=== PATIENT | male | born 1955 | race Caucasian/White ===

== ENCOUNTER 2019-07-07 07:01 | Observation (INO) ==
--- NOTE | 2019-06-10 11:16 | Anesthesiology Consultation ---
Date of Service June 10, 2019 Assessment & Plan (1) Encounter for pre-operative examination: Chart Review Chart Review: Pending: Refer to Additional Notes / Consult section (pending preop testing (labs, EKG, CXR)) and Patient seen in Pre Admission Testing Teaching & Discussion Pre-Anesthesia Teaching/Discussion Notes: Instructed NPO after midnight before surgery,except medications with 15 cc of water. Medication instructions provide d according to the PAT guidelines. History Surgery Operation Date: 06/23/19 09:50 Proposed Procedures p Bilateral Open Inguinal Hernia Repair - John Jimenez MD, FACS Height/Weight Height: 5 ft 10 in Weight: 88.2 kg Allergies Allergy/AdvReac Type Severity Reaction Status Date / Time Penicillins Allergy Unknown Childhood- Verified 06/10/19 11:11 unknown reaction Medications Home Medications Medication Instructions Recorded Confirmed Last Taken calcipotriene 0.005 % topical cream 1 appln TOPICAL DAILY gm 06/09/19 06/10/19 Unknown fluticasone propionate 50 1 sprays INTRANASAL Q12H PRN #1 gm 06/09/19 06/10/19 Unknown mcg/actuation nasal spray,suspension latanoprost 0.005 % eye drops 1 drops OPB HS 06/09/19 06/10/19 Unknown multivitamin tablet 1 tab PO DAILY 06/09/19 06/10/19 Unknown zinc 50 mg tablet 50 mg PO HS tab 06/09/19 06/10/19 Unknown aspirin 81 mg tablet,delayed 81 mg PO QAM tab 06/10/19 06/10/19 Unknown release atorvastatin 10 mg tablet 10 mg PO HS tab 06/10/19 06/10/19 Unknown cholecalciferol (vitamin D3) 2,000 2,000 units PO QPM cap 06/10/19 06/10/19 Unknown unit capsule diclofenac sodium 50 mg 50 mg PO BID tab 06/10/19 06/10/19 Unknown tablet,delayed release gabapentin 300 mg capsule 300 mg PO HS cap 06/10/19 06/10/19 Unknown lisinopril 20 mg tablet 20 mg PO QAM tab 06/10/19 06/10/19 Unknown omega-3 acid ethyl esters 1 gram 1 cap PO DAILY cap 06/10/19 06/10/19 Unknown capsule timolol maleate 0.5 % once daily 1 drops OPB BID 06/10/19 06/10/19 Unknown eye drops tramadol 50 mg tablet 50 mg PO Q6H PRN tab 06/10/19 06/10/19 Unknown Past Medical History Medical History Bulging disc cervical "pinched nerve"- on gabapentin Glaucoma Hyperlipidemia Hypertension Migraine Osteoarthritis Sleep apnea CPAP Exercise / Class Metabolic Activity II 4-5 Yardwork/Stairs/Walk up hill Past Family History Family History Other No significant family history Past Surgical History Surgical History History of colonoscopy History of tooth extraction Hx of vasectomy S/P epidural steroid injection LUMBAR SPINE (HAD ANESTHESIA) Past Anesthesia History No Hx of Anesthesia Complications and No Family Hx of Anesthesia Complications History of PONV No Hx of PONV and No Hx of Motion Sickness Social History Smoking Status: Former smoker tobacco type: cigarettes Do You Dip or Chew Tobacco: No Smoking End Date: QUIT 35 YEARS AGO Hx Alcohol Use: No Hx Substance Use: No substance use type: does not use Review of Systems Patient denies chest pain, shortness of breath, dyspnea on exertion, reflux, cough, wheezing, palpitations. Physical Exam Vital Signs Last Vital Signs Temp 36.9 C 06/10/19 10:53 Pulse 50 L 06/10/19 10:53 Resp 16 06/10/19 10:53 BP 139/86 06/10/19 10:53 Pulse Ox 96 06/10/19 10:53 HR in high 40's-low 50's during PAT exam (per patient, chronic bradycardia/asymp tomatic) PHYSICAL Full neck and c-spine range of motion. Full TMJ range of motion. TMD 3.5 finger breaths Mallampati Score 1 Dentition: missing sides/molars, several crowns "all over" Lungs: clear throughout to auscultation Cardiac: regular rate and rhythm, no murmurs noted Spine: normal Carotid arteries: negative bruit Extremities: no edema
--- NOTE | 2019-06-10 11:17 | PAT Medication Instructions ---
Medication Instructions Date of Service June 10, 2019 Home Medications calcipotriene 0.005 % topical cream 1 appln TOPICAL DAILY fluticasone propionate 50 mcg/actuation nasal spray,suspension 1 sprays INTRANASAL Q12H PRN latanoprost 0.005 % eye drops 1 drops OPB multivitamin tablet 1 tab PO DAILY zinc 50 mg tablet 50 mg PO HS aspirin 81 mg tablet,delayed release 81 mg PO QAM atorvastatin 10 mg tablet 10 mg PO HS cholecalciferol (vitamin D3) 2,000 unit capsule 2,000 units PO QPM diclofenac sodium 50 mg tablet,delayed release 50 mg PO BID gabapentin 300 mg capsule 300 mg PO HS lisinopril 20 mg tablet 20 mg PO QAM omega-3 acid ethyl esters 1 gram capsule 1 cap PO DAILY timolol maleate 0.5 % once daily eye drops 1 drops OPB BID tramadol 50 mg tablet 50 mg PO Q6H PRN ASK your surgeon for instructions diclofenac sodium 50 mg tablet,delayed release 50 mg PO BID ASK your prescriber and surgeon aspirin 81 mg tablet,delayed release 81 mg PO QAM STOP taking 2 weeks before surgery (or as soon as possible if surgery is within 2 weeks) omega-3 acid ethyl esters 1 gram capsule 1 cap PO DAILY STOP taking 24 hours before surgery calcipotriene 0.005 % topical cream 1 appln TOPICAL DAILY DO NOT take the morning of surgery multivitamin tablet 1 tab PO DAILY lisinopril 20 mg tablet 20 mg PO QAM Take morning of surgery With a small sip of water, OTHERWISE NOTHING TO EAT OR DRINK AFTER MIDNIGHT: fluticasone propionate 50 mcg/actuation nasal spray,suspension 1 sprays INTRANASAL Q12H PRN (if needed) timolol maleate 0.5 % once daily eye drops 1 drops OPB BID tramadol 50 mg tablet 50 mg PO Q6H PRN (okay to take up to 4 hours prior to surgery if needed) Take evening before surgery fluticasone propionate 50 mcg/actuation nasal spray,suspension 1 sprays INTRANASAL Q12H PRN latanoprost 0.005 % eye drops 1 drops OPB zinc 50 mg tablet 50 mg PO HS atorvastatin 10 mg tablet 10 mg PO HS cholecalciferol (vitamin D3) 2,000 unit capsule 2,000 units PO QPM gabapentin 300 mg capsule 300 mg PO HS timolol maleate 0.5 % once daily eye drops 1 drops OPB BID tramadol 50 mg tablet 50 mg PO Q6H PRN (if needed) Other Notes If you have any questions please call us at [phone] or [phone] or [phone] or [phone]
[2019-06-10 12:54] LABS: Basophils # (auto) 0.02 K/uL (0-0.2); Basophils % (auto) 0.3 %; Eosinophils # (auto) 0.18 K/uL (0-0.5); Eosinophils % (auto) 2.5 %; Hematocrit (blood only) 45.5 % (42-52); Hemoglobin 16.1 g/dL (14.0-18.0); Immature Granulocytes # (auto) 0.02 K/uL (0.00-0.02); Immature Granulocytes % (auto) 0.3 %; Lymphocytes # (auto) 1.11 K/uL (1.2-3.4); Lymphocytes % (auto) 15.4 %; Mean Corpuscular Hgb Conc 35.4 g/dL (32-36); Mean Corpuscular Volume 90.5 fL (80-100); Mean Platelet Volume 10.7 fL (7.4-10.4); Monocytes # (auto) 0.92 K/uL (0.11-0.59); Monocytes % (auto) 12.7 %; Neutrophils # (auto) 4.97 K/uL (1.4-6.5); Neutrophils % (auto) 68.8 %; Platelet Count 177 K/uL (130-400); RDW Coefficient of Variation 13.1 % (11.5-14.5); RDW Standard Deviation 42.6 fL (36.4-46.3); Red Blood Count 5.03 M/uL (4.7-6.1); White Blood Count 7.22 K/uL (4.8-10.8)
[2019-06-10 13:04] LABS: BUN Creatinine Ratio 18.1 (10-20); Calcium 10.1 mg/dl (8.5-10.1); Creatinine Clr Calc Pharmacy 89.5 ml/min; Est GFR (African American) 100.8; Potassium 4.9 mmol/L (3.5-5.1)
[~2019-07-07 07:01] MED LIST: CLINDAMYCIN 900 MG / 50ML D5W IV SCH; LR 15ML/HR IV SCH
[2019-07-07] MEDS ORDERED: ePHEDrine sulfate 50 MG/ML AMP IV PRN (07:34)
[2019-07-07] MEDS ORDERED: MEPERIDINE HCL 25 MG/ML CARP IV PRN (07:34)
[2019-07-07] MEDS ORDERED: HYDROmorphone INJ 1 MG/ML SYRINGE IV PRN (07:34)
[2019-07-07] MEDS ORDERED: LABETALOL HCL IV 5 MG/ML 20ML IV PRN (07:34)
[2019-07-07] MEDS ORDERED: fentaNYL citrate 100 MCG/2 ML VIAL IV PRN (07:34)
[2019-07-07] MEDS ORDERED: PHENYLEPHRINE 100MCG/ML 5ML SYR IV PRN (07:34)
[2019-07-07] MEDS ORDERED: ATROPINE SULFATE 0.1 MG/ML 10ML SYR IV PRN (07:34)
[2019-07-07] MEDS ORDERED: ONDANSETRON INJ 2 MG/ML 2 ML VIAL IV PRN ×2 (07:34→11:56)
[2019-07-07] MEDS ORDERED: PROPOFOL IV EMULSION 10 MG/ML 20 ML VIAL IV ONE (08:14)
[2019-07-07] MEDS ORDERED: GLYCOPYRROLATE 0.2 MG/ML VIAL ONE (08:14)
[2019-07-07] MEDS ORDERED: ONDANSETRON INJ 2 MG/ML 2 ML VIAL ONE (08:14)
[2019-07-07] MEDS ORDERED: MIDAZOLAM HCL 1 MG/ML 2ML VIAL ONE (08:14)
[2019-07-07] MEDS ORDERED: DEXAMETHASONE SOD INJ 4 MG/ML VIAL ONE (08:14)
[2019-07-07] MEDS ORDERED: LIDOCAINE HCL 2% 2 ML VIAL/AMP(20MG/ML) INFIL ONE (08:14)
[2019-07-07] MEDS ORDERED: ROCURONIUM BROMIDE 10 MG/ML 5 ML VIAL ONE ×2 (08:14→09:45)
[2019-07-07] MEDS ORDERED: NEOSTIGMINE METHYLSULFATE 5 MG/5 ML SYR ONE (08:14)
[2019-07-07] MEDS ORDERED: fentaNYL citrate 100 MCG/2 ML VIAL ONE (08:15)
[2019-07-07] MEDS ORDERED: BUPIVACAINE/EPINEPHRINE 0.5% MPF 1:200,000 30 ML VIAL ONE (08:20)
[2019-07-07] MEDS ORDERED: BACITRACIN INJ 50,000 UNIT VIAL ONE (08:20)
[2019-07-07] MEDS ORDERED: CEFAZOLIN 250 MG/ML 1 GM VIAL ONE (08:22)
--- NOTE | 2019-07-07 08:31 | History & Physical Bridge Note ---
Date of Service July 07, 2019 History & Physical Bridge Note I have examined the patient, reviewed the History & Physical and in the interval since the performance of the History & Physical I have noted the following changes of clinical significance: no changes noted
[2019-07-07] MEDS ORDERED: ePHEDrine sulfate 50 MG/ML SYR ONE (09:05)
[2019-07-07] MEDS ORDERED: ACETAMINOPHEN 1000 MG/100 ML IV IV ONE (09:40)
[2019-07-07] MEDS ORDERED: LARYING-O-JET KIT (LTA) ONE (09:45)
--- NOTE | 2019-07-07 10:14 | Operative Report ---
PG Post Operative Report Pre & Post Diagnosis Operation Date: 07/07/19 08:30 Pre-Op Diagnosis: Bilateral Inguinal Hernias Post-Op Diagnosis: Bilateral Inguinal Hernias- direct defects I identified the patient and participated in the time-out.: Yes Procedure Operation Date: 07/07/19 08:30 Actual Procedures p Bilateral Open Inguinal Hernia Repair(Bilateral) - John Jimenez MD, FACS Surgeon John Jimenez MD, FACS Football Coach Nunu Ojeda Estimated Blood Loss 10 Findings Consistent with Post-Op Diagnosis Specimens Lt lipoma Description of Procedure see dictation I attest to the content of the Intraoperative Record and any orders documented therein. Any exceptions are noted below.
--- NOTE | 2019-07-07 10:51 | Operative Report ---
DATE OF OPERATION: 07/07/2019 NAME OF OPERATION: Bilateral inguinal hernia repair. PREOPERATIVE DIAGNOSIS: Bilateral inguinal hernias. POSTOPERATIVE DIAGNOSIS: Bilateral inguinal hernias with direct defects. STAFF SURGEON: John Jimenez MD. CARGO SUPERVISOR: Gus Ojeda PA-C ANESTHESIA: General. DESCRIPTION OF PROCEDURE: The patient was brought in the operating room and placed on the operating table in supine position. His lower abdomen was prepped and draped in usual fashion bilaterally. My household personal assistant helped with prepping, draping, repair of the hernias and closure of the wounds. Right side was approached first. The patient had identical hernias on both sides, right greater than left. Incision was made in the right side parallel to the inguinal ligament, carrying dissection down identifying the external oblique fibers, incising them along their length to the external ring, mobilizing the cord structures. The patient had a direct hernia which was relatively large. It was mobilized away from the cord structures then reduced. A large mesh plug was placed into this area and then secured using 0 silk suture. A large mesh patch was then placed into the floor of the canal around the cord structures over the plug, secured using 2-0 Ethibond suture. External oblique fibers closed over the mesh around the cord structures using 2-0 Ethibond suture, we were careful to identify the ilioinguinal and iliohypogastric nerves. The site was anesthetized using 0.5% plain Marcaine. Subcutaneous tissue reapproximated using 2-0 plain suture and then the skin reapproximated using 4-0 nylon suture and Steri-Strips. Left side was approached in exactly the same repair with a little bit smaller direct defect and also a lipoma of the cord. It was again closed in an identical fashion. Dressings were applied and patient transferred to recovery room in stable condition. I attest to the content of the Intraoperative Record and any orders documented therein. Any exception s are noted below.
--- NOTE | 2019-07-07 11:03 | Anesthesiology Progress Note ---
Date of Service July 07, 2019 Anesthesia Post Procedure Vital Signs Vital Signs: Temp Pulse Pulse Resp BP BP Pulse Ox 07/07/19 10:50 65 17 143/65 H 99 07/07/19 10:40 76 18 137/71 99 07/07/19 10:32 36.3 C L 86 20 146/67 H 98 07/07/19 08:15 37.1 C 71 18 166/86 H 98 Pain Intensity Bilateral Groin: Pain Intensity: 1 Transfer of Care Handoff Completed per policy Notes Mental Status: alert / awake / arousable Patient Amnestic to Procedure: Yes Nausea / Vomiting: adequately controlled Pain: adequately controlled Airway Patency, RR, SpO2: stable & adequate BP & HR: stable & adequate Hydration State: stable & adequate Anesthetic Complications: no major complications apparent and Pt Satisfied with anesthetic care
[2019-07-07] MEDS ORDERED: MoRPHine SULFATE 2 MG/ML CARP IV PRN (11:56)
[2019-07-07] MEDS ORDERED: PROMETHAZINE HCL 12.5 MG in SODIUM CHLORIDE 0.9% 50 ML IV PRN (11:56)
[2019-07-07] MEDS ORDERED: ACETAMINOPHEN 325 MG TAB PO PRN (11:56)
[2019-07-07] MEDS ORDERED: PROMETHAZINE HCL 25 MG in SODIUM CHLORIDE 0.9% 50 ML IV PRN (11:56)
[2019-07-07] MEDS ORDERED: MoRPHine SULFATE 4 MG/ML 1 ML CARP\\VIAL IV PRN (11:56)
[2019-07-07] MEDS: HYDROCODONE/ACETAMOPHEN 5/325MG TAB PO PRN ×2 (12:59→23:11)
[2019-07-07] MEDS ORDERED: SODIUM CHLORIDE 0.9% 1000ML 1,000 ML IV SCH (13:00)
[2019-07-07] MEDS ORDERED: INFLUENZA ADMINISTRATION CHARGE ONE (13:45)
[2019-07-07] MEDS ORDERED: PNEUMOCOCCAL POLYSACCHARIDES 25 MCG/0.5 ML VIAL/SYR IM ONE (13:45)
[2019-07-07] MEDS ORDERED: PNEUMOCOCCAL ADMINISTRATION CHARGE ONE (13:45)
[2019-07-07] MEDS ORDERED: INFLUENZA VACCINE HIGH DOSE 65+ 0.5 ML SYR IM ONE (13:45)
--- NOTE | 2019-07-07 13:51 | Consultation ---
Date of Consultation July 07, 2019 Assessment & Plan (1) Bilateral inguinal hernia: s/p open repair with mesh tolerated well, minimal pain eating well, no issues breathing likely for d/c tomorrow AM if okay with Dr. Jimenez (2) HTN (hypertension): BP stable, continue Lisinopril check BMP in the AM (3) Dyslipidemia: continue Lipitor History of Present Illness Requesting Physician: Dr. Jimenez Reason for Consultation: Medical management Attending Physician: John Jimenez MD, [facility] History of Present Illness 63 yo male with h/o HTN, hyperlipidemia, sleep apnea who was is here on observation after bilateral open inguinal hernia repair with mesh this morning by Dr. Jimenez. He said that he was not having much pain with the hernias, just some stretching sensation and the obvious deformity. He has some mild pain post operatively, had a [place] that helped. He is eating well, breathing comfortably. He confirms that he just has a history HTN and dyslipidemia. No heart history. No chronic lung issues. He is hoping to go home tomorrow. Allergies Allergy/AdvReac Type Severity Reaction Status Date / Time Penicillins Allergy Unknown Childhood- Verified 07/07/19 07:44 unknown reaction Home Medications Home Medications Medication Instructions Recorded Confirmed Type calcipotriene 0.005 % topical cream 1 appln TOPICAL DAILY gm 06/09/19 07/07/19 History fluticasone propionate 50 1 sprays INTRANASAL Q12H PRN #1 gm 06/09/19 07/07/19 History mcg/actuation nasal spray,suspension latanoprost 0.005 % eye drops 1 drops OPB HS 06/09/19 07/07/19 History multivitamin tablet 1 tab PO DAILY 06/09/19 07/07/19 History zinc 50 mg tablet 50 mg PO HS tab 06/09/19 07/07/19 History aspirin 81 mg tablet,delayed 81 mg PO QAM tab 06/10/19 07/07/19 History release atorvastatin 10 mg tablet 10 mg PO HS tab 06/10/19 07/07/19 History cholecalciferol (vitamin D3) 2,000 2,000 units PO QPM cap 06/10/19 07/07/19 History unit capsule diclofenac sodium 50 mg 50 mg PO BID tab 06/10/19 07/07/19 History tablet,delayed release gabapentin 300 mg capsule 300 mg PO HS cap 06/10/19 07/07/19 History lisinopril 20 mg tablet 20 mg PO QAM tab 06/10/19 07/07/19 History omega-3 acid ethyl esters 1 gram 1 cap PO DAILY cap 06/10/19 07/07/19 History capsule timolol maleate 0.5 % once daily 1 drops OPB BID 06/10/19 07/07/19 History eye drops tramadol 50 mg tablet 50 mg PO Q6H PRN tab 06/10/19 07/07/19 History Acetaminophen Extra Strength 1 tab PO QID PRN 07/07/19 07/07/19 History Patient History Medical History Bulging disc cervical "pinched nerve"- on gabapentin Glaucoma Hyperlipidemia Hypertension Migraine Osteoarthritis Sleep apnea CPAP Surgical History Hx of inguinal hernia surgery (07/07/19) Bilateral Open Inguinal Hernia Repair Dr. Jimenez 07/07/19 History of colonoscopy History of tooth extraction Hx of vasectomy S/P epidural steroid injection LUMBAR SPINE (HAD ANESTHESIA) Family History Other Dyslipidemia Hypertension Social History Preferred Language: Croatian Communication Ability: Effective Hogshead Stripper Required: No Beliefs That Will Affect Care: None Current Living Situation: Spouse Other Information That Helps Us Care for You: No Feels Safe at Home: Yes Safety Concerns: Feels Safe At This Time Smoking Status: Former smoker Tobacco Type: cigarettes ; Do You Dip or Chew Tobacco: No ; Smoking End Date: QUIT 35 YEARS AGO ; Second Hand Exposure: No ; Tobacco Cessation Education Requested by Patient: No Hx Alcohol Use: No Hx Substance Use: No Review of Systems Review of Systems: All systems reviewed & are unremarkable except as noted in HPI & below Constitutional: no fever, no chills, no sweats, no fatigue and no weakness Respiratory: no cough and no dyspnea Cardiovascular: no chest pain, no syncope and no edema Gastrointestinal: + abdominal pain (bilateral inguinal, mild); no nausea, no vomiting, no constipation and no diarrhea/loose stools Genitourinary: no dysuria, no difficulty urinating, no urinary frequency and no urinary hesitancy Musculoskeletal: no back pain, no joint pain, no stiffness and no muscle weakness Physical Exam Constitutional: WD/WN, vitals as above Eyes: PERRL, conjunctivae normal, anicteric sclerae ENMT: external ear and nose normal, oropharynx normal Neck: trachea midline, no thyromegaly Respiratory: normal respiratory effort, lungs clear to auscultation Cardiovascular: RRR, no murmur, no edema Gastrointestinal (Abdomen): normal bowel sounds, soft, nontender, no hepatosplenomegaly (inguinal incisions dressed, mild tenderness) Musculoskeletal: no cyanosis or clubbing, extremities motor strength 5/5 Skin: no rashes, warm and dry Neurologic: patellar DTR's 2+ bilat, sensation intact and PERRL, EOMI, accommodation nl, no face palsy, no dysarthria Psychiatric: A+Ox3, euthymic affect Lymphatic: no cervical or axillary lymphadenopathy Results & Data Vital Signs (Past 12 Hours) Vital Signs Temp Pulse Pulse Resp BP BP Pulse Ox 07/07/19 12:40 63 16 110/53 L 93 07/07/19 12:25 59 L 16 114/64 93 07/07/19 11:40 37.1 C 67 16 122/62 96 07/07/19 11:20 64 14 109/75 94 07/07/19 11:10 36.3 C L 65 17 133/62 92 07/07/19 11:00 59 L 15 132/63 95 07/07/19 10:50 65 17 143/65 H 99 07/07/19 10:40 76 18 137/71 99 07/07/19 10:32 36.3 C L 86 20 146/67 H 98 07/07/19 08:15 37.1 C 71 18 166/86 H 98 Medications Administered Current Inpatient Medications Acetaminophen (Tylenol) 650 mg PO Q4H PRN PRN Reason: Pain Stop: 08/06/19 11:55 Hydrocodone Bitart/Acetaminophen ([place] 5/325) 2 tab PO 3XDQ4 PRN PRN Reason: Pain Stop: 07/21/19 11:55 Hydrocodone Bitart/Acetaminophen ([place] 5/325) 1 tab PO 3XDQ4 PRN PRN Reason: Pain Stop: 07/21/19 11:55 Last Admin: 07/07/19 12:59 Dose: 1 tab Documented by: Atorvastatin Calcium (Lipitor) 10 mg PO HS JANICE Stop: 08/06/19 20:59 Gabapentin (Neurontin) 300 mg PO HS JANICE Stop: 08/06/19 20:59 Cefazolin Sodium (Ancef 1000mg) 1,000 mg in 7.5 mls @ 2.5 mls/min IV Q8H JANICE; Protocol Stop: 07/17/19 17:59 Promethazine HCl 25 mg/ Sodium (Chloride) 51 mls @ 204 mls/hr IV Q6H PRN PRN Reason: Nausea And Vomiting Stop: 08/06/19 11:55 Promethazine HCl 12.5 mg/ (Sodium Chloride) 50.5 mls @ 204 mls/hr IV Q6H PRN PRN Reason: Nausea And Vomiting Stop: 08/06/19 11:55 Ibuprofen (Motrin) 600 mg PO Q6H PRN PRN Reason: Pain Stop: 08/06/19 11:55 Influenza Virus Vaccine (Fluzone High-Dose Pf) 0.5 ml IM .ONCE ONE Stop: 07/07/19 13:46 Lisinopril (Zestril) 20 mg PO QAM [facility] Stop: 08/07/19 08:59 Magnesium Hydroxide (Milk Of Magnesia) 30 ml PO BID JANICE Stop: 08/06/19 20:59 Morphine Sulfate (Morphine Sulfate) 2 mg IV 4XDQ3H PRN PRN Reason: Pain Stop: 07/21/19 11:55 Morphine Sulfate (Morphine Sulfate) 4 mg IV 3XQ2H PRN PRN Reason: Pain Stop: 07/21/19 11:55 Ondansetron HCl (Zofran) 4 mg IV 4XDQ4H PRN PRN Reason: Nausea Stop: 08/06/19 11:55 Pneumococcal Polyvalent Vaccine (Pneumovax-23) 25 mcg IM .ONCE ONE Stop: 07/07/19 13:46 Senna/Docusate Sodium (Senokot S) 1 tab PO BID [facility] Stop: 08/06/19 20:59 Timolol Maleate (Timoptic 0.5% Oph) 1 drops OPB BID JANICE Stop: 08/06/19 20:59 PG Care Time/CCT Total # of Minutes Spent Total Time Spent with Patient: Total time spent is greater than 50% in coordination of care (as documented) at patient's floor/unit and/or counseling patient:
[2019-07-07] MEDS: IBUPROFEN 600 MG TAB PO PRN ×2 (15:28→21:13)
[2019-07-07] MEDS: CEFAZOLIN 1000MG 1,000 MG/7.5 ML SYR IV SCH (18:57)
[2019-07-07] MEDS: DOCUSATE SODIUM/SENNA 50/8.6MG TAB PO SCH (20:43)
[2019-07-07] MEDS: TIMOLOL MALEATE 0.5% OP SOLN 5 ML BTL OPB SCH (20:44)
[2019-07-07] MEDS: MAGNESIUM HYDROXIDE SUSP 30 ML UDC PO SCH (20:44)
[2019-07-07] MEDS ORDERED: ATORVASTATIN 10 MG TAB PO SCH (21:00)
[2019-07-07] MEDS ORDERED: GABAPENTIN 300 MG CAP PO SCH (21:00)
[2019-07-08] MEDS: CEFAZOLIN 1000MG 1,000 MG/7.5 ML SYR IV SCH (02:12)
[2019-07-08] MEDS: HYDROCODONE/ACETAMOPHEN 5/325MG TAB PO PRN ×2 (03:05→07:51)
[2019-07-08 05:37] LABS: Hematocrit (blood only) 43.6 % (42-52); Mean Corpuscular Hemoglobin 31.3 pg (25-34); Mean Corpuscular Hgb Conc 34.4 g/dL (32-36); Mean Corpuscular Volume 90.8 fL (80-100); Mean Platelet Volume 10.7 fL (7.4-10.4); Platelet Count 211 K/uL (130-400); RDW Coefficient of Variation 13.2 % (11.5-14.5); RDW Standard Deviation 43.4 fL (36.4-46.3); White Blood Count 16.32 K/uL (4.8-10.8)
[2019-07-08 06:03] LABS: BUN Creatinine Ratio 20.5 (10-20); Calcium 9.4 mg/dl (8.5-10.1); Creatinine Clr Calc Pharmacy 83.6 ml/min; Est GFR (African American) 102.1; Est GFR (Non-African American) 88.1; Potassium 4.6 mmol/L (3.5-5.1)
--- NOTE | 2019-07-08 07:49 | Anesthesiology Progress Note ---
Date of Service July 08, 2019 Anesthesia Post Procedure Vital Signs Vital Signs: Temp Pulse Pulse Pulse Resp BP BP 07/08/19 07:46 36.9 C 50 L 16 138/81 07/08/19 04:00 37.1 C 45 L 16 134/63 07/07/19 23:07 36.9 C 49 L 16 111/57 L 07/07/19 19:00 37 C 88 16 121/78 07/07/19 14:56 37.1 C 81 16 139/75 07/07/19 13:55 77 18 165/73 H 07/07/19 12:40 37.1 C 63 16 110/53 L 07/07/19 12:25 59 L 16 114/64 07/07/19 11:40 37.1 C 67 16 122/62 07/07/19 11:20 64 14 109/75 07/07/19 11:10 36.3 C L 65 17 133/62 07/07/19 11:00 59 L 15 132/63 07/07/19 10:50 65 17 143/65 H 07/07/19 10:40 76 18 137/71 07/07/19 10:32 36.3 C L 86 20 146/67 H 07/07/19 08:15 37.1 C 71 18 166/86 H Pulse Ox 07/08/19 07:46 98 07/08/19 04:00 96 07/07/19 23:07 92 07/07/19 19:00 93 07/07/19 14:56 94 07/07/19 13:55 94 07/07/19 12:40 93 07/07/19 12:25 93 07/07/19 11:40 96 07/07/19 11:20 94 07/07/19 11:10 92 07/07/19 11:00 95 07/07/19 10:50 99 07/07/19 10:40 99 07/07/19 10:32 98 07/07/19 08:15 98 Pain Intensity Bilateral Groin: Pain Intensity: 3 Notes Mental Status: alert / awake / arousable and participated in evaluation Patient Amnestic to Procedure: Yes Nausea / Vomiting: adequately controlled Pain: adequately controlled Airway Patency, RR, SpO2: stable & adequate BP & HR: stable & adequate Hydration State: stable & adequate Anesthetic Complications: no major complications apparent and Pt Satisfied with anesthetic care
[2019-07-08] MEDS: MAGNESIUM HYDROXIDE SUSP 30 ML UDC PO SCH (07:51)
[2019-07-08] MEDS: TIMOLOL MALEATE 0.5% OP SOLN 5 ML BTL OPB SCH (07:52)
[2019-07-08] MEDS: DOCUSATE SODIUM/SENNA 50/8.6MG TAB PO SCH (07:52)
--- NOTE | 2019-07-08 08:12 | Discharge Summary ---
DATE OF ADMISSION: 07/07/2019 DATE OF DISCHARGE: 07/08/2019 PRINCIPAL DIAGNOSIS: Bilateral inguinal hernias. PROCEDURES: The patient underwent open bilateral inguinal hernia repair with mesh. HOSPITAL COURSE: He tolerated the procedure well and has been kept overnight, voiding well. His wounds are in good control. He is ready for discharge home today to be followed in the surgical clinic within 1 week.
[2019-07-08] MEDS ORDERED: LISINOPRIL 20 MG TAB PO SCH (09:00)
--- NOTE | 2019-07-08 15:08 | Hospitalist Progress Note ---
Date of Service July 08, 2019 Assessment & Plan (1) Bilateral inguinal hernia: s/p open repair with mesh, POD 1 tolerated well, minimal pain eating well, no issues breathing d/c to home today per surgery (2) HTN (hypertension): BP stable, continue Lisinopril on discharge (3) Dyslipidemia: continue Lipitor Subjective no issues today, just some mild pain at surgical site eating well, breathing well, ambulated in the hallway ready to go home labs with leukocytosis of 16k, likely reactive BMP with normal Cr and electrolytes Review of Systems Review of Systems: All systems reviewed & are unremarkable except as noted in HPI & below Gastrointestinal: + abdominal pain (bilateral inguinal pain) Physical Exam Constitutional: WD/WN, vitals as above Eyes: PERRL, conjunctivae normal, anicteric sclerae ENMT: external ear and nose normal, oropharynx normal Neck: trachea midline, no thyromegaly Respiratory: normal respiratory effort, lungs clear to auscultation Cardiovascular: RRR, no murmur, no edema Gastrointestinal (Abdomen): normal bowel sounds, soft, nontender, no hepatosplenomegaly (inguinal incisions dressed, mild tenderness) Musculoskeletal: no cyanosis or clubbing, extremities motor strength 5/5 Skin: no rashes, warm and dry Neurologic: patellar DTR's 2+ bilat, sensation intact and PERRL, EOMI, accommodation nl, no face palsy, no dysarthria Psychiatric: A+Ox3, euthymic affect Lymphatic: no cervical or axillary lymphadenopathy Results & Data Vital Signs (Past 12 Hours) Vital Signs Temp Pulse Pulse Pulse Resp BP BP 07/08/19 08:12 36.9 C 88 67 50 L 16 166/86 H 138/81 07/08/19 07:46 36.9 C 50 L 16 138/81 07/08/19 04:00 37.1 C 45 L 16 134/63 Pulse Ox 07/08/19 08:12 98 07/08/19 07:46 98 07/08/19 04:00 96 Laboratory Results Laboratory Results - last 24 hr 07/08/19 07/08/19 05:07 05:07 WBC 16.32 H RBC 4.80 Hgb 15.0 Hct 43.6 MCV 90.8 MCH 31.3 MCHC 34.4 RDW Std Deviation 43.4 RDW Coeff of Sandee 13.2 Plt Count 211 MPV 10.7 H Sodium 137 Potassium 4.6 Chloride 103 Carbon Dioxide 26 Anion Gap 8.0 BUN 19 H Creatinine 0.91 Est Cr Clr Drug Dosing 83.6 Est GFR ( Amer) 102.1 Est GFR (Non-Af Amer) 88.1 BUN/Creatinine Ratio 20.5 H Glucose 113 H Calcium 9.4 PG Care Time/CCT Total # of Minutes Spent Total Time Spent with Patient: Total time spent is greater than 50% in coordination of care (as documented) at patient's floor/unit and/or counseling patient:
== END 2019-07-08 10:17 | disposition home or self-care (01) ==
LOC: ASU 07:01 → 3W 07:01